=== PATIENT | male | born 1985 | race American Indian/Alaskan Native ===

== ENCOUNTER 2022-01-06 10:12 | Emergency (ER) | payer SELFPAY ==
[2022-01-06 10:32] VITALS: BP 147/82
--- NOTE | 2022-01-06 11:05 | XRay Report ---
Right foot-3 views INDICATION: PAIN. COMPARISON: None available. IMPRESSION: Comminuted fractures through the tuft of the great toe distal phalanx with surrounding s oft tissue swelling. There is also a tiny ossific fragment closer to the base of the great toe distal phalanx medially which may represent sequelae of other injury. A comminuted mid shaft fracture of th e middle phalanx of the second toe is present as well without significant displacement. Signer Name: Kike Centeno MD Signed: 01/06/2022 11:00 AM Workstation Name: [id number]
--- NOTE | 2022-01-06 11:11 | Emergency Department Report ---
ED Lower Extremity HPI - General Chief Complaint: Extremity Injury, Lower Stated Complaint: FOOT INJURY Time Seen by Provider: 01/06/22 11:08 Source: patient Mode of arrival: Wheelchair Limitations: No Limitations - Related Data Previous Rx's Medication Instructions Recorded Last Taken Type Acetaminophen [Acetaminophen 8 650 mg PO Q8H PRN #25 tablet.er 01/06/22 Unknown Rx Hour] Ibuprofen [Motrin] 800 mg PO Q8HR PRN #30 tablet 01/06/22 Unknown Rx traMADoL [Ultram] 50 mg PO Q6HR PRN #10 tablet 01/06/22 Unknown Rx Allergies Allergy/AdvReac Type Severity Reaction Status Date / Time No Known Allergies Allergy Unverified 01/06/22 10:28 ED Review of Systems ROS: Stated complaint: FOOT INJURY Other details as noted in HPI ED Past Medical Hx - Past Medical History Previous Medical History?: No - Surgical History Past Surgical History?: No - Medications Home Medications: Home Medications Medication Instructions Recorded Confirmed Last Taken Type Acetaminophen [Acetaminophen 8 650 mg PO Q8H PRN #25 tablet.er 01/06/22 Unknown Rx Hour] Ibuprofen [Motrin] 800 mg PO Q8HR PRN #30 tablet 01/06/22 Unknown Rx traMADoL [Ultram] 50 mg PO Q6HR PRN #10 tablet 01/06/22 Unknown Rx ED Physical Exam - General Limitations: No Limitations ED Course Vital Signs 01/06/22 10:32 Temperature 99.1 F Pulse Rate 54 L Respiratory 18 Rate Blood Pressure 147/82 [Right] O2 Sat by Pulse 100 Oximetry Critical care attestation.: If time is entered above; I have spent that time in minutes in the direct care of this critically ill patient, excluding procedure time. ED Disposition Clinical Impression: Fracture of toe Qualifiers: Encounter type: initial encounter Toe: great toe Fracture type: closed Phalanx: distal Disposition: 01 HOME / SELF CARE / HOMELESS Is pt being admited?: No Does the pt Need Aspirin: No Condition: Stable Instructions: Toe Fracture, [id number] Additional Instructions: REST ICE ELEVATE ORTHO SHOE/SPLINT CRUTCHES MEDS ORDERED FOR PAIN FOLLOW UP WITH [facility] REFERRAL BELOW Referrals: BLU ZHU MD [Staff Physician] - 3-5 Days Forms: Work/School Release Form(ED) Time of Disposition: 11:13
[2022-01-06] MEDS ORDERED: IBUPROFEN 800 MG TAB PO ONE (11:12)
[2022-01-06] MEDS ORDERED: HYDROcodone/ACETAMINOPHEN 10-325MG TAB PO ONE (11:12)
== END 2022-01-06 12:12 | disposition home or self-care (01) ==
LOC: ED 10:12
DX: S92.421A Displaced fracture of distal phalanx of right great toe, initial encounter for closed fracture (principal); W22.8XXA Striking against or struck by other objects, initial encounter; Y93.89 Activity, other specified; Y92.89 Other specified places as the place of occurrence of the external cause; Y99.8 Other external cause status
CPT/HCPCS: 99283

== ENCOUNTER 2022-01-26 10:13 | Outpatient (CLI) | payer OTHER ==
--- NOTE | 2022-01-26 11:30 | XRay Report ---
RIGHT FOOT 3 VIEWS INDICATION: RIGHT FOOT PAIN. COMPARISON: None. IMPRESSION: Comminuted fracture of the distal phalanx of the great toe is identified. The remaining bony structures are intact. No significant joint pathology. Signer Name: Josh Toure Jr, MD Signed: 01/26/2022 11:25 AM Workstation Name: [id number]
== END 2022-01-26 10:14 | disposition home or self-care (01) ==
LOC: XRAY 10:13
PROVIDERS: ATTEND Orthopaedic Surgery
DX: S92.421A Displaced fracture of distal phalanx of right great toe, initial encounter for closed fracture (principal); S92.401A Displaced unspecified fracture of right great toe, initial encounter for closed fracture; X58.XXXA Exposure to other specified factors, initial encounter; Y93.89 Activity, other specified; Y92.89 Other specified places as the place of occurrence of the external cause; Y99.8 Other external cause status